=== PATIENT | female | born 1950 | race Caucasian/White ===

== ENCOUNTER 2022-07-23 09:26 | Outpatient (CLI) | payer MEDICARE | END 2022-07-23 09:27 | disposition home or self-care (01) | LOC: TBSIIMAG 09:26 | PROVIDERS: ATTEND Orthopaedic Surgery | DX: M75.102 Unspecified rotator cuff tear or rupture of left shoulder, not specified as traumatic (principal); S43.432A Superior glenoid labrum lesion of left shoulder, initial encounter; M25.712 Osteophyte, left shoulder; M94.8X1 Other specified disorders of cartilage, shoulder; M25.412 Effusion, left shoulder; M24.012 Loose body in left shoulder ==

== ENCOUNTER 2025-02-06 10:01 | Outpatient (CLI) | payer MEDICARE ==
[2025-02-06 11:16] LABS: #Basophils 0.03 10x3/uL (0.0-0.2); #Eosinophils 0.09 10x3/uL (0.0-0.7); #Monocytes 0.53 10x3/uL (0.11-0.59); #Neutrophils 2.13 10x3/uL (1.40-6.50); %Basophils 0.7 % (0.0-1.0); %Eosinophils 2.0 % (0.0-10.0); %Lymphocytes 38.4 % (21.0-51.0); %Monocytes 11.7 % (0.0-10.0); %Neutrophils 47.0 % (42.0-75.0); Hematocrit 40.1 % (36.0-47.0); Hemoglobin 12.9 g/dL (12.0-16.0); Mean Corpuscular Hemoglobin 32.8 pg (27.0-31.0); Mean Corpuscular Volume 102.0 fL (78.0-98.0); Platelet Count 160 10x3/uL (130-400); Red Blood Cell (RBC) Count 3.93 mill/uL (4.20-5.40); White Blood Cell (WBC) Count 4.53 10x3/uL (4.8-10.8)
[2025-02-06 11:33] LABS: INR-International Normal Ratio 1.2; Prothrombin Time 15.5 sec (12.0-14.7)
[2025-02-06 11:38] LABS: ALT (SGPT) 47 U/L (Less than 34); AST (SGOT) 72 U/L (11-34); Albumin 3.3 g/dL (3.1-4.5); Alkaline Phosphatase 64 U/L (40-110); Anion Gap 16 mmol/L (10-20); BUN (Urea Nitrogen) 15 mg/dL (9.8-20.1); Bilirubin, Total 0.5 mg/dL (0.3-1.2); Calc. Creatinine Clearance 0 mL/min (70-130); Calcium 8.9 mg/dL (7.8-10.44); Carbon Dioxide 31 mmol/L (23-31); Chloride 99 mmol/L (98-107); Globulin 2.3 g/dL (2.4-3.5); Glucose 96 mg/dL (83-110); Potassium 3.6 mmol/L (3.5-5.1); Sodium 142 mmol/L (136-145)
== END 2025-02-06 10:02 | disposition home or self-care (01) ==
LOC: LABBT 10:01
PROVIDERS: ATTEND Orthopaedic Surgery
DX: Z01.818 Encounter for other preprocedural examination (principal); M17.11 Unilateral primary osteoarthritis, right knee
CPT/HCPCS: 80053; 85025; 85610; 87081

== ENCOUNTER 2025-02-06 11:00 | Outpatient (CLI) | payer MEDICARE | END 2025-02-06 11:01 | disposition home or self-care (01) | LOC: CT 11:00 | PROVIDERS: ATTEND Orthopaedic Surgery | DX: Z01.818 Encounter for other preprocedural examination (principal); M17.11 Unilateral primary osteoarthritis, right knee | CPT/HCPCS: 80053; 85025; 85610; 87081 ==

== ENCOUNTER 2025-02-14 08:00 | Observation (INO) | payer MEDICARE ==
[2025-02-06 10:22] VITALS: BMI 28.2
[2025-02-14] MEDS ORDERED: Vancomycin 1 GM/200 ML (FROZEN) BAG ONE (09:14)
[2025-02-14] MEDS ORDERED: Tranexamic Acid 1,000 MG/10 ML VIAL ONE (09:14)
[2025-02-14] MEDS ORDERED: Ropivacaine 0.5% HCl/PF (150 MG/30 ML VIAL) ONE (09:26)
[2025-02-14] MEDS ORDERED: Ondansetron PF 4 MG/2 ML Vial IVP PRN ×2 (10:00→16:10)
[2025-02-14] MEDS ORDERED: HYDROcodone/Acetaminophen 10/325 mg Tablet PO PRN ×2 (10:00)
[2025-02-14] MEDS ORDERED: Ropivacaine 0.2% 550 ML 550 ML NERVE BLCK SCH (10:00)
[2025-02-14] MEDS ORDERED: fentaNYL PF 100 MCG/2 ML SYRINGE ONE (10:15)
[2025-02-14] MEDS ORDERED: SUCCINYLCHOLINE/SOD CL,ISO/PF 200 MG/10 ML SYRINGE FS ONE (10:22)
[2025-02-14] MEDS ORDERED: PROPOFOL 200 MG/20 ML VIAL ONE (10:31)
[2025-02-14] MEDS ORDERED: PHENYLEPHRINE-NS 100 MCG/ML 10 ML SYRINGE ONE (10:31)
[2025-02-14] MEDS ORDERED: Ondansetron PF 4 MG/2 ML Vial ONE (11:26)
[2025-02-14] MEDS ORDERED: Ketorolac Tromethamine 30 MG (1 mL) VIAL IVP SCH (12:00)
[2025-02-14] MEDS ORDERED: HYDROmorphone 0.5 MG/0.5 ML SYRINGE ONE (12:13)
[2025-02-14] MEDS ORDERED: diphenhydrAMINE 25 MG CAP PO PRN (16:10)
[2025-02-14] MEDS: Ketorolac Tromethamine 30 MG (1 mL) VIAL IVP SCH (18:27)
[2025-02-14] MEDS: Ferrous Gluconate 324 MG TAB PO SCH (22:07)
[2025-02-14] MEDS: Senokot S 8.6-50 MG TAB PO SCH (22:07)
[2025-02-14] MEDS: Carvedilol 6.25 MG TAB PO SCH (22:07)
[2025-02-15 04:45] LABS: Hematocrit 34.6 % (36.0-47.0); Hemoglobin 11.4 g/dL (12.0-16.0); Mean Corpuscular Hemoglobin 33.7 pg (27.0-31.0); Mean Corpuscular Volume 102.4 fL (78.0-98.0); Platelet Count 141 10x3/uL (130-400); Red Blood Cell (RBC) Count 3.38 mill/uL (4.20-5.40); White Blood Cell (WBC) Count 5.29 10x3/uL (4.8-10.8)
[2025-02-15] MEDS: Acetaminophen 325 MG TAB PO PRN (08:34)
[2025-02-15] MEDS: Multivitamin W/ Minerals 1 TAB PO SCH (08:34)
[2025-02-15] MEDS: Allopurinol 300 MG TAB PO SCH (08:34)
[2025-02-15] MEDS: Apixaban 5 MG TAB PO SCH (08:34)
[2025-02-15 12:46] VITALS: BP 126/71; TEMP 98.1
[2025-02-17] MEDS ORDERED: FLU (Fluad Triv) 25-26 (65UP)PF 45 MCG/0.5 ML Syringe IM ONE (09:00)
== END 2025-02-15 16:34 | disposition home or self-care (01) ==
LOC: SDC 08:00 → SURG B 16:02 → SDC 16:12
PROVIDERS: ADMIT Orthopaedic Surgery; ATTEND Orthopaedic Surgery
PROC: 0SRC0JZ Replacement of Right Knee Joint with Synthetic Substitute, Open Approach (ICD-10-PCS; principal; 2025-02-14)
DX: M17.11 Unilateral primary osteoarthritis, right knee (principal); M94.8X6 Other specified disorders of cartilage, lower leg; I10 Essential (primary) hypertension; E78.5 Hyperlipidemia, unspecified; Z79.899 Other long term (current) drug therapy; Z88.5 Allergy status to narcotic agent; Z88.1 Allergy status to other antibiotic agents; Z87.891 Personal history of nicotine dependence
CPT/HCPCS: 0055T; 27447; 64447; 36415; 85027; A4306; C1713; C1776; C1889; J0169; J1100; J1171; J1885; J2250; J2405; J2704; J2795; J3010; J3373